=== PATIENT | male | born 1990 | race Two or more races ===

== ENCOUNTER → 2016-11-24 | Outpatient (CLI) | payer BC ==
--- NOTE | 2016-11-24 09:21 | MR ---
EXAMINATION TYPE: MR knee RT wo con DATE OF EXAM: 11/24/2016 9:03 AM COMPARISON: NONE HISTORY: Anterior knee pain TECHNIQUE: Multiplanar, multisequence imaging of the knee is performed without IV contrast. FINDINGS: MEDIAL MENISCUS: There is a complex tear involving the posterior horn and body of the medial meniscus LATERAL MENISCUS: Anterior and posterior horns are intact without tear. CRUCIATE LIGAMENTS: The anterior and posterior cruciate ligaments are intact and unremarkable. COLLATERAL LIGAMENTS: The medial collateral ligament and lateral collateral ligament complex are inta ct and unremarkable. EXTENSOR MECHANISM: Visualized quadriceps and patellar tendons are intact. EFFUSION: Small amount of fluid in the suprapatellar bursa. POPLITEAL CYST: No popliteal/parker cyst. TRICOMPARTMENT SPACES: Joint spaces are preserved. CARTILAGE: Cartilage intact. BONE MARROW SIGNAL: No focal abnormal marrow signal is appreciated. OTHER: No additional significant abnormality is appreciated. IMPRESSION: Complex tear posterior horn and body medial meniscus.
== END | disposition home or self-care (01) ==
LOC: RADMRIMAIN 08:23
PROVIDERS: ATTEND Orthopaedic Surgery
DX: S83.231A Complex tear of medial meniscus, current injury, right knee, initial encounter (principal)

== ENCOUNTER 2018-02-27 05:39 | Emergency (ER) | payer BC, OTHER ==
[2018-02-27 05:45] VITALS: BP 160/114; PULSE 68; RESP 18; TEMP 97.9
[2018-02-27] MEDS ORDERED: AMOXIC-POT CLAV 875-125MG 1 EACH TAB PO STA (06:17)
[2018-02-27] MEDS ORDERED: CIPROFLOXACIN-DEXAMETH 0.3-0.1% DROPS 7.5 ML BTL RIGHT EAR STA (06:17)
[2018-02-27] MEDS ORDERED: AMOXIC-POT CLAV 875MG STARTER 2 EACH TABLET PO STA (06:17)
--- NOTE | 2018-02-27 06:18 | ED ---
General Adult HPI - General Chief complaint: ENT Stated complaint: Earache Time Seen by Provider: 02/27/18 05:53 Source: patient, RN notes reviewed, old records reviewed Mode of arrival: ambulatory Limitations: no limitations - History of Present Illness Initial comments: This is a 19-year-old male the ER for evasive right ear pain. Patient admits to severe right ear pain and posterior ear pain. Patient admits significant recently slowing in the leg, he also missed positive Q-tip use. Denies fever. Denies any other complaints of sore throat or runny nose. No loss of hearing - Related Data Home Medications Medication Instructions Recorded Confirmed Meclizine [Antivert] 25 mg PO QID 12/26/14 01/01/15 Phentermine HCl [Adipex-P] 1 tab PO DAILY 12/26/14 01/01/15 amLODIPine [Norvasc] 1 tab PO DAILY 12/26/14 01/01/15 Diazepam [Valium] 5 mg PO BID 01/01/15 01/01/15 Scopolamine 1.5MG/72Hr Patch 1 patch TRANSDERM Q72H 01/01/15 01/01/15 [Transderm-Scop 1.5MG/72Hr Patch] Previous Rx's Medication Instructions Recorded Meclizine [Antivert] 25 mg PO TID #30 tab 01/01/15 Amoxic-Pot Clav 875-125Mg 1 tab PO Q12HR #20 tablet 02/27/18 [Augmentin 875-125] Allergies Allergy/AdvReac Type Severity Reaction Status Date / Time No Known Allergies Allergy Verified 02/27/18 05:45 Review of Systems ROS Statement: Those systems with pertinent positive or pertinent negative responses have been documented in the HPI. ROS Other: All systems not noted in ROS Statement are negative. Past Medical History Past Medical History: No Reported History, Hypertension History of Any Multi-Drug Resistant Organisms: None Reported Past Surgical History: Orthopedic Surgery Additional Past Surgical History / Comment(s): vertigo Past Psychological History: Bipolar Smoking Status: Current every day smoker Past Alcohol Use History: Occasional Past Drug Use History: None Reported General Exam Limitations: no limitations General appearance: alert, in no apparent distress Head exam: Present: atraumatic, normocephalic, normal inspection Eye exam: Present: normal appearance, PERRL, EOMI. Absent: scleral icterus, conjunctival injection, periorbital swelling ENT exam: Present: normal exam, mucous membranes moist, other (Right positive otitis externa) Neck exam: Present: normal inspection. Absent: tenderness, meningismus, lymphadenopathy Respiratory exam: Present: normal lung sounds bilaterally. Absent: respiratory distress, wheezes, rales, rhonchi, stridor Cardiovascular Exam: Present: regular rate, normal rhythm, normal heart sounds. Absent: systolic murmur, diastolic murmur, rubs, gallop, clicks GI/Abdominal exam: Present: soft, normal bowel sounds. Absent: distended, tenderness, guarding, rebound, rigid Extremities exam: Present: normal inspection, full ROM, normal capillary refill. Absent: tenderness, pedal edema, joint swelling, calf tenderness Back exam: Present: normal inspection Neurological exam: Present: alert, oriented X3, CN II-XII intact Psychiatric exam: Present: normal affect, normal mood Skin exam: Present: warm, dry, intact, normal color. Absent: rash Course Vital Signs 02/27/18 05:43 Temperature 97.9 F Pulse Rate 68 Respiratory 18 Rate Blood Pressure 160/114 O2 Sat by Pulse 99 Oximetry Medical Decision Making - Medical Decision Making 19 male the ER with right ear pain, positive right otitis externa. Patient to be discharged home with drops Disposition Clinical Impression: Right otitis externa Disposition: HOME SELF-CARE Condition: Good Instructions: Otitis Externa (ED) Prescriptions: Amoxic-Pot Clav 875-125Mg [Augmentin 875-125] 1 tab PO Q12HR #20 tablet Is patient prescribed a controlled substance at d/c from ED?: No Referrals: Elida Capellan MD [Primary Care Provider] - 1-2 days
== END 2018-02-27 06:39 | disposition home or self-care (01) ==
LOC: EC 05:39
DX: H60.91 Unspecified otitis externa, right ear (principal); I10 Essential (primary) hypertension; F31.9 Bipolar disorder, unspecified; F17.200 Nicotine dependence, unspecified, uncomplicated; Z79.899 Other long term (current) drug therapy
CPT/HCPCS: 99283

== ENCOUNTER → 2023-03-19 | Outpatient (CLI) | payer BC ==
[2023-03-20 03:14] LABS: Basophils # (A) 0.04 X 10*3/uL (0.00-0.10); Basophils % (A) 0.5 %; Eosinophils # (A) 0.22 X 10*3/uL (0.04-0.35); Eosinophils % (A) 2.6 %; HCT 42.8 % (39.6-50.0); HGB 14.3 d/dL (13.0-17.0); Lymphocytes % (A) 30.3 %; MCH 29.3 pg (27.0-32.0); MCHC 33.4 d/dL (32.0-37.0); MCV 87.7 FL (80.0-97.0); Mean Platelet Volume 10.2 FL (9.5-12.2); Monocytes % (A) 5.8 %; NRBC Per 100 WBC 0 X 10*3/uL (0.00-0.01); Neutrophils # (A) 5.16 X 10*3/uL (1.80-7.70); Neutrophils % (A) 60.2 %; Platelet Count 296 X 10*3/uL (140-440); RBC 4.88 X 10*6/uL (4.40-5.60); RDW 12.2 % (11.5-14.5); WBC 8.57 X 10*3/uL (4.50-10.00)
[2023-03-20 03:42] LABS: ALT 111 U/L (10-49); AST 54 U/L (14-35); Albumin 4.7 d/dL (3.8-4.9); Albumin/Globulin Ratio 1.96 Ratio (1.60-3.17); Alkaline Phosphatase 106 U/L (41-126); Blood Urea Nitrogen 14.8 mg/dL (9.0-27.0); Calcium 9.7 mg/dL (8.7-10.3); Carbon Dioxide 23.1 mmol/L (21.6-31.8); Chloride 99 mmol/L (96-109); Chol/HDL Ratio 5.48 Ratio; Globulin 2.4 d/dL (1.6-3.3); Glucose 300 mg/dL (70-110); LDL Cholesterol,Calculated 94.1 mg/dL (0.0-131.0); Potassium 4.2 mmol/L (3.5-5.5); Sodium 137 mmol/L (135-145); Total Bilirubin <0.2 mg/dL (0.3-1.2); Total Protein 7.1 d/dL (6.2-8.2)
== END | disposition home or self-care (01) ==
LOC: LABWHC1 13:50
PROVIDERS: ATTEND Family Medicine
DX: E11.9 Type 2 diabetes mellitus without complications (principal); R53.83 Other fatigue
CPT/HCPCS: 36415; 80053; 80061; 83036; 84402; 84403; 85025

== ENCOUNTER → 2023-11-21 | Outpatient (CLI) | payer BC ==
[2023-11-21 22:52] LABS: Basophils # (A) 0.06 X 10*3/uL (0.00-0.10); Basophils % (A) 0.9 %; Eosinophils # (A) 0.12 X 10*3/uL (0.04-0.35); Eosinophils % (A) 1.7 %; HCT 47.5 % (39.6-50.0); HGB 15.4 g/dL (13.0-17.0); Lymphocytes # (A) 2.36 X 10*3/uL (0.90-5.00); Lymphocytes % (A) 33.5 %; MCHC 32.4 g/dL (32.0-37.0); MCV 86.4 FL (80.0-97.0); Mean Platelet Volume 9.9 FL (9.5-12.2); Monocytes # (A) 0.41 X 10*3/uL (0.20-1.00); Monocytes % (A) 5.8 %; NRBC Per 100 WBC 0.02 X 10*3/uL (0.00-0.01); Neutrophils # (A) 4.05 X 10*3/uL (1.80-7.70); Neutrophils % (A) 57.5 %; Platelet Count 297 X 10*3/uL (140-440); RDW 13.1 % (11.5-14.5); WBC 7.04 X 10*3/uL (4.50-10.00)
[2023-11-21 23:49] LABS: BUN/Creat Ratio 20.22 Ratio (12.00-20.00); Blood Urea Nitrogen 18.2 mg/dL (9.0-27.0); Chloride 100 mmol/L (96-109); Chol/HDL Ratio 4.11 Ratio; Glucose 176 mg/dL (70-110); LDL Cholesterol,Calculated 61.4 mg/dL (0.0-131.0); Potassium 4.6 mmol/L (3.5-5.5); Sodium 136 mmol/L (135-145)
[2023-11-21 23:50] LABS: ALT 44 U/L (10-49); AST 24 U/L (14-35); Albumin 4.4 g/dL (3.8-4.9); Albumin/Globulin Ratio 1.69 Ratio (1.60-3.17); Alkaline Phosphatase 102 U/L (41-126); Calcium 9.8 mg/dL (8.7-10.3); Carbon Dioxide 22.6 mmol/L (21.6-31.8); Globulin 2.6 g/dL (1.6-3.3); Prostate Specific Antigen 0.71 ng/mL (0.000-2.500); Total Bilirubin <0.2 mg/dL (0.3-1.2)
== END | disposition home or self-care (01) ==
LOC: LABWHC1 09:30
PROVIDERS: ATTEND Family Medicine
DX: Z12.5 Encounter for screening for malignant neoplasm of prostate (principal); E78.5 Hyperlipidemia, unspecified
CPT/HCPCS: 36415; 80053; 80061; 82306; 83036; 84153; 84403; 84443; 85025